=== PATIENT | male | born 1940 | race Caucasian/White ===

== ENCOUNTER 2019-06-30 07:15 | Day surgery (SDC) | payer MEDICARE, BC, SELFPAY ==
[2019-06-30] MEDS: PROPARACAINE 0.5% OPHTH SOL 2 DROPS EYE-OP (08:05)
[2019-06-30 08:09] VITALS: BP 158/61; PULSE 65; RESP 20; TEMP 36.6; O2SAT 100
[2019-06-30] MEDS: CATARACT EYE COMPOUND (10 DROPS/SYRINGE) 3 DROPS EYE-OP (08:11)
[2019-06-30 08:12] VITALS: BP 158/61; PULSE 65; RESP 20; TEMP 36.6; O2SAT 100; BMI 21.1
--- NOTE | 2019-06-30 09:06 | PM.PREOP ---
Pre-operative Note Interval Note History & Physical reviewed/Exam performed by Physician: No Changes to H&P: No
--- NOTE | 2019-06-30 09:06 | PM.OP.1 ---
Operative Date/Time/Diagnoses Pre-op diagnosis: Nuclear cataract right eye Procedure & Clinicians Procedure: Cataract Surgery Same procedure as scheduled: Yes Surgeon: Moises Acosta Anesthesia Type: MAC +/- and Sedation Operative Notes Procedure in detail: Patient brought to the operating suite. Tetracaine drops placed in the right eye. Marking instrument was used to yady the vertical and horizontal meridians. Patient was prepped and draped in sterile manner. Wire lid speculum was placed in the eye. Betadine drops were placed on the eye. This was irrigated. Lidocaine jelly was placed on the eye. A paracentesis port was created with a side-port blade. 0.1 mL 1% preservative free lidocaine was injected into the anterior chamber. The anterior chamber was deepened with viscoelastic. 2.6 mm keratome was used to create a temporal clear corneal incision. Cystotome and Utrata forceps were used to create continuous tear capsulorrhexis. Balanced salt solution was used to hydro dissect the nucleus. The phacoemulsification handpiece was inserted and the nucleus was removed using the stop and chop technique. The irrigation aspiration handpiece was inserted and the remaining cortex was removed. Anterior chamber was deepened with viscoelastic. An Cordon [id number] intraocular lens with a power of 23.0 was injected into the capsular bag. Irrigation aspiration handpiece was inserted and the remaining viscoelastic was removed. The lens was rotated to the 180 degree meridian. Incision was hydrated with balanced salt solution and found to be leak free with pressure with Weck-Cynthia sponges. 0.1 mL Vigamox injected anterior chamber. 0.3 mL Kenalog 10 mg was injected subconjunctivally. Lid speculum was removed. The patient left the operating room in excellent condition. Complications: none Post-operative Condition: stable Disposition: same day surgery
[2019-06-30] MEDS: TRIAMCINOLONE 50 MG/5 ML VIAL INJ (09:26)
[2019-06-30] MEDS: PHENYLEPHRINE/LIDOCAINE VIAL (OR) 0.2 ML EYE-OP (09:26)
[2019-06-30] MEDS: CHONDROIDTIN/SOD HYALURONATE 1.05 ML SYRINGE INTRAOCULA (09:26)
[2019-06-30] MEDS: MOXIFLOXACIN INJ 5 MG/ML VIAL EYE-OP (09:26)
[2019-06-30] MEDS: BALANCED SALT IRRIG SOLN NO.2 500 ML, EPINEPHrine 1 MG IRR (09:27)
[2019-06-30] MEDS: LIDOCAINE JELLY 2% 5 ML 1 APPLIC TOP (09:27)
[2019-06-30] MEDS: TETRACAINE 0.5% OPHTH DROPS 4 ML 2 DROPS EYE-OP (09:27)
[2019-06-30 09:39] VITALS: BP 125/59; PULSE 56; RESP 20; TEMP 36.7; O2SAT 99
== END 2019-06-30 10:00 | disposition home or self-care (01) ==
PROVIDERS: PCP Physician Assistant Medical; Visit Provider Ophthalmology
PROC: (CPT 66984; principal; 2019-06-30 09:15)
DX: H25.11 Age-related nuclear cataract, right eye (principal); I10 Essential (primary) hypertension
CPT/HCPCS: 66984; J0171; J2250; J3010; J3301; V2787

== ENCOUNTER 2019-07-14 06:35 | Day surgery (SDC) | payer MEDICARE, BC, SELFPAY ==
[2019-07-14] MEDS: PROPARACAINE 0.5% OPHTH SOL 2 DROPS EYE-OP (07:29)
[2019-07-14] MEDS: CATARACT EYE COMPOUND (10 DROPS/SYRINGE) 3 DROPS EYE-OP (07:32)
[2019-07-14 07:33] VITALS: BP 143/60; PULSE 55; RESP 15; TEMP 36.3; O2SAT 100; BMI 27.1
--- NOTE | 2019-07-14 08:10 | PM.PREOP ---
Pre-operative Note Interval Note History & Physical reviewed/Exam performed by Physician: No Changes to H&P: No
--- NOTE | 2019-07-14 08:10 | PM.OP.1 ---
Operative Date/Time/Diagnoses Pre-op diagnosis: Nuclear Cataract Left eye Post-op diagnosis: same Procedure & Clinicians Surgeon: Moises Acosta Anesthesia Type: MAC +/- and Sedation Operative Notes Procedure in detail: Patient brought to the operating suite. Tetracaine drops placed in the left eye. Marking instrument was used to yady the vertical and horizontal meridians. Patient was prepped and draped in sterile manner. Wire lid speculum was placed in the eye. Betadine drops were placed on the eye. This was irrigated. Lidocaine jelly was placed on the eye. A paracentesis port was created with a side-port blade. 0.1 mL 1% preservative free lidocaine was injected into the anterior chamber. The anterior chamber was deepened with viscoelastic. 2.6 mm keratome was used to create a temporal clear corneal incision. Cystotome and Utrata forceps were used to create continuous tear capsulorrhexis. Balanced salt solution was used to hydro dissect the nucleus. The phacoemulsification handpiece was inserted and the nucleus was removed using the stop and chop technique. The irrigation aspiration handpiece was inserted and the remaining cortex was removed. Anterior chamber was deepened with viscoelastic. An Cordon [id number] intraocular lens with a power of 22.5 was injected into the capsular bag. Irrigation aspiration handpiece was inserted and the remaining viscoelastic was removed. The lens was rotated to the 180 degree meridian. Incision was hydrated with balanced salt solution and found to be leak free with pressure with Weck-Cynthia sponges. 0.1 mL Vigamox injected anterior chamber. 0.3 mL Kenalog 10 mg was injected subconjunctivally. Lid speculum was removed. The patient left the operating room in excellent condition. Complications: none Post-operative Condition: stable Disposition: same day surgery
[2019-07-14] MEDS: CHONDROIDTIN/SOD HYALURONATE 1.05 ML SYRINGE INTRAOCULA (08:27)
[2019-07-14] MEDS: MOXIFLOXACIN INJ 5 MG/ML VIAL EYE-OP (08:28)
[2019-07-14] MEDS: LIDOCAINE JELLY 2% 5 ML 1 APPLIC TOP (08:28)
[2019-07-14] MEDS: PHENYLEPHRINE/LIDOCAINE VIAL (OR) 0.2 ML EYE-OP (08:28)
[2019-07-14] MEDS: BALANCED SALT IRRIG SOLN NO.2 500 ML, EPINEPHrine 1 MG IRR (08:29)
[2019-07-14] MEDS: TETRACAINE 0.5% OPHTH DROPS 4 ML 2 DROPS EYE-OP (08:29)
[2019-07-14] MEDS: TRIAMCINOLONE 50 MG/5 ML VIAL INJ (08:29)
[2019-07-14 09:15] VITALS: BP 135/72; PULSE 60; RESP 12; TEMP 36.3; O2SAT 98
== END 2019-07-14 09:15 | disposition home or self-care (01) ==
PROVIDERS: PCP Physician Assistant Medical; Visit Provider Ophthalmology
PROC: (CPT 66984; principal; 2019-07-14 08:15)
DX: H25.12 Age-related nuclear cataract, left eye (principal); I10 Essential (primary) hypertension
CPT/HCPCS: 66984; J0171; J2250; J3010; J3301; V2787

== ENCOUNTER 2023-07-16 12:18 | Emergency (ER) | payer MEDICARE, BC, SELFPAY ==
[2023-07-16 12:28] VITALS: BP 168/56; PULSE 67; RESP 16; TEMP 37.2; O2SAT 98; BMI 27.0
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
--- NOTE | 2023-07-16 12:30 | DI.RAD.S_ITS ---
PROCEDURE: XR LUMBAR SPINE 2-3V INDICATIONS: fall TECHNIQUE: 3 views of the lumbar spine were acquired. COMPARISON: None. FINDINGS: Bones: 5 [id number] vertebrae are present. Multilevel disc space narrowing and endplate osteophyte formation, as well as facet hypertrophy. There is normal bony alignment. There is mild wedging of L1. No suspicious bony lesions. Soft tissues: Overlying bowel gas pattern is normal. No suspicious soft tissue calcifications. IMPRESSION: 1. L1 compression fracture. 2. Multilevel degenerative disc and facet disease. Dictated by: Esther Rothman M.D. on 07/16/2023 at 13:11 Approved by: Esther Rothman M.D. on 07/16/2023 at 13:12
--- NOTE | 2023-07-16 12:30 | DI.RAD.S_ITS ---
PROCEDURE: XR KNEE RT 3V INDICATIONS: fall TECHNIQUE: 3 views of the knee were acquired. COMPARISON: None. FINDINGS: Bones: No fractures or dislocations. No suspicious bony lesions. Soft tissues: No joint effusion. No suspicious soft tissue calcifications. IMPRESSION: No acute fracture. No osseous lesion. If symptoms and/or clinical suspicion for pathology persist, further assessment with repeat, or advanced imaging (e.g., CT, MRI, or bone scan) may be helpful for further assessment. Dictated by: Esther Rothman M.D. on 07/16/2023 at 13:11 Approved by: Esther Rothman M.D. on 07/16/2023 at 13:11
[2023-07-16 13:38] VITALS: BP 180/81; PULSE 59; RESP 22; O2SAT 100
[2023-07-16] MEDS: HYDROCODONE/ACET 5/325 TABLET 1 TAB PO (13:52)
[2023-07-16] MEDS: CYCLOBENZAPRINE 10 MG TABLET PO (13:53)
== END 2023-07-16 14:01 | disposition home or self-care (01) ==
PROVIDERS: Emergency Provider Student in an Organized Health Care Education/Training Program
DX: S32.010A Wedge compression fracture of first lumbar vertebra, initial encounter for closed fracture (principal); M25.561 Pain in right knee; V98.8XXA Other specified transport accidents, initial encounter
CPT/HCPCS: 72100; 73562; 99283

== ENCOUNTER 2023-08-03 19:51 | Emergency (ER) | payer MEDICARE, BC, SELFPAY ==
[2023-08-03] VITALS (13 sets, daily range): BP systolic 100–178; BP diastolic 62–85; PULSE 73–123; RESP 18–46; TEMP 36.8; O2SAT 92–100; BMI 27.7
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
--- NOTE | 2023-08-03 23:24 | DI.RAD.S_ITS ---
PROCEDURE: XR CHEST 1V INDICATIONS: dyspnea TECHNIQUE: One view of the chest was acquired. COMPARISON: None. FINDINGS: Surgical changes and devices: Sternotomy and CABG. Lungs and pleura: Bilateral interstitial prominence. Bibasilar opacities suspicious for pneumonia or aspiration. No pleural effusions or pneumothorax. Mediastinum: Mediastinal contours appear normal. Heart size is normal. Bones and chest wall: No suspicious bony lesions. Overlying soft tissues appear unremarkable. IMPRESSION: 1. Bibasilar opacities suspicious for pneumonia or aspiration. 2. Bilateral interstitial prominence suggesting mild chronic CHF. Dictated by: Mona Marie M.D. on 08/03/2023 at 23:40 Approved by: Mona Marie M.D. on 08/03/2023 at 23:41
[2023-08-03] MEDS: KETOROLAC 30 MG/ML VIAL 15 MG IV (23:36)
[2023-08-03] MEDS: LORazepam 2 MG/ML INJ 0.5 MG IV (23:37)
[2023-08-03 23:43] LABS: Add Manual Diff / Slide Review NO; Basophils Absolute Auto 0 /uL (0-100); Basophils Percent Auto 0.4 % (0-2); Eosinophils Absolute Auto 100 /uL (0-450); Eosinophils Percent Auto 0.4 % (2-4); Hematocrit 43.1 % (41-53); Hemoglobin 15.2 g/dL (13.5-17.5); Lymphocytes Absolute Auto 1600 /uL (1100-4500); Lymphocytes Percent Auto 12.9 % (25-40); Mean Corpuscular HGB Conc 35.2 % (30-36); Mean Corpuscular Hemoglobin 30.9 PG (26-34); Mean Corpuscular Volume 87.8 fL (80-100); Monocytes Absolute Auto 600 /uL (0-900); Monocytes Percent Auto 5.3 % (3-14); Neutrophils Absolute Auto 9800 /uL (1500-7000); Platelet Count 371 X10^3/uL (150-400); Red Blood Cell Count 4.91 X10^6/uL (4.5-5.9); Red Cell Distribution Width 13.6 % (11.6-14.8); White Blood Cell Count 12.2 X10^3/uL (4.5-11.0)
[2023-08-03 23:49] LABS: HEMOLYSIS < 15 (0-50); Sodium 137 mmol/L (137-145)
[2023-08-03 23:50] LABS: Alanine Aminotransferase 26 IU/L (<50); Albumin 4.7 g/dL (3.5-5.0); Albumin Globulin Ratio 1.1 (1.0-2.8); Alkaline Phosphatase 131 U/L (38-126); Aspartate Aminotransferase 35 IU/L (17-59); BUN Creatinine Ratio 18.1 (6-22); Bilirubin Total 1.3 mg/dL (0.2-1.3); Blood Urea Nitrogen 25 mg/dL (9-20); Calcium 10.7 mg/dL (8.4-10.2); Carbon Dioxide 24 mmol/L (22-32); Chloride 101 mmol/L (98-107); Estimated Glomerular Filt Rate 51 mL/min (>60); Globulin 4.1 g/dL (1.7-4.1); Glucose 105 mg/dL (80-110); Lipase 246 U/L (23-300); Potassium 4.1 mmol/L (3.4-5.1); Total Protein 8.8 g/dL (6.3-8.2)
[2023-08-04] VITALS: BP 131/66; PULSE 74; RESP 30; O2SAT 100
[2023-08-04 00:01] LABS: Troponin I < 0.012 ng/mL (0.01-0.034)
[2023-08-04] MEDS: cefTRIAXone 2,000 MG in SODIUM CHLORIDE 0.9% 100 ML 200 MG IV (00:23)
[2023-08-04 00:30] VITALS: BP 116/61; PULSE 71; RESP 30; O2SAT 100
[2023-08-04 01:00] VITALS: BP 111/74; PULSE 72; RESP 35
[2023-08-04] MEDS: HYDROCODONE/ACET 5/325 PREPACK 1 BOTTLE MISC (01:09)
[2023-08-04 01:19] VITALS: TEMP 36.6
== END 2023-08-04 01:19 | disposition home or self-care (01) ==
PROVIDERS: Emergency Provider Emergency Medicine; PCP Internal Medicine Geriatric Medicine
DX: J18.9 Pneumonia, unspecified organism (principal); S32.010D Wedge compression fracture of first lumbar vertebra, subsequent encounter for fracture with routine healing; R07.9 Chest pain, unspecified; Z72.820 Sleep deprivation; W19.XXXD Unspecified fall, subsequent encounter; Z79.899 Other long term (current) drug therapy
CPT/HCPCS: 71045; 80053; 83690; 84484; 85025; 93005; 96365; 96375; 99283; 99284; J0696; J1885; J2060

== ENCOUNTER → 2024-03-18 08:49 | Outpatient (CLI) | payer MEDICARE, BC, SELFPAY ==
--- NOTE | 2024-03-18 08:51 | DI.US.S_ITS ---
PROCEDURE: US CAROTID DOPPLER BI INDICATIONS: CHF/HTN/CAD/BILATERAL CORONARY ARTERY STENOSIS TECHNIQUE: Color and pulse Doppler interrogation was performed of both carotid systems, with image documentation and velocity measurements. COMPARISON: None. FINDINGS: Stenosis calculations are based on SRU (Society of Radiologists in Ultrasound) criteria. Bilateral mild atherosclerotic plaque seen. Right side: Brachial blood pressure: 167/70 mm Hg. Common carotid artery peak systolic velocity: 56 cm/sec. Internal carotid artery peak systolic velocity: 93 cm/sec. Internal carotid artery end diastolic velocity: 12 cm/sec. External carotid artery peak systolic velocity: 12 cm/sec. ICA/CCA peak systolic ratio: 1.7 . Carcamo scale imaging description: Mild plaque Percent internal carotid artery stenosis: Normal Vertebral artery: Flow direction is antegrade. Left side: Brachial blood pressure: 171/75 mm Hg. Common carotid artery peak systolic velocity: 62 cm/sec. Internal carotid artery peak systolic velocity: 103 cm/sec. Internal carotid artery end diastolic velocity: 27 cm/sec. External carotid artery peak systolic velocity: 171 cm/sec. ICA/CCA peak systolic ratio: 1.7 . Carcamo scale imaging description: Mild atherosclerotic plaque Percent internal carotid artery stenosis: Normal Vertebral artery: Flow direction is antegrade. IMPRESSION: No hemodynamically significant stenosis in either ICA Dictated by: Porfirio Roe M.D. on 03/19/2024 at 8:30 Approved by: Porfirio Roe M.D. on 03/19/2024 at 8:51
== END ==
LOC: US 08:50
PROVIDERS: PCP Student in an Organized Health Care Education/Training Program; Referring Provider Internal Medicine Cardiovascular Disease; Visit Provider Internal Medicine Cardiovascular Disease
DX: I11.0 Hypertensive heart disease with heart failure (principal); I50.30 Unspecified diastolic (congestive) heart failure; I25.10 Atherosclerotic heart disease of native coronary artery without angina pectoris; I65.23 Occlusion and stenosis of bilateral carotid arteries
CPT/HCPCS: 93880